=== PATIENT | female | born 1950 | race Hispanic/Latino ===

== ENCOUNTER 2022-03-21 19:51 | Emergency (ER) | payer OTHER, MEDICARE ==
[~2022-03-21] VITALS: Ht 154.9 cm; Wt 57.2 kg
[2022-03-21 20:14] LABS: BASOPHILS % (AUTO) 0.3 % (0.0-5.0); EOSINOPHILS % (AUTO) 1.1 % (0.0-8.0); HEMATOCRIT 46.3 % (36-48); LYMPHOCYTES % (AUTO) 37.1 % (21.0-51.0); MEAN CORPUSCULAR HEMOGLOBIN 31.3 pg (27.0-33.0); MEAN CORPUSCULAR HGB CONC 33.9 g/dL (32.0-36.0); MEAN CORPUSCULAR VOLUME 92.2 fL (79-99); MONOCYTES % (AUTO) 7.3 % (3.0-13.0); NEUTROPHILS % (AUTO) 53.9 % (40.0-77.0); PLATELET COUNT (AUTO) 209 K/uL (130-400); RED BLOOD CELL COUNT(AUTO) 5.02 MIL/uL (4.00-5.50); RED CELL DISTRIBUTION WIDTH 12.4 % (11.0-15.5); WHITE BLOOD COUNT (AUTO) 15.4 K/uL (4.8-10.8)
[2022-03-21] MEDS ORDERED: METF-444 PO (20:19)
[2022-03-21] MEDS ORDERED: ROSU20TA31 PO (20:20)
[2022-03-21] MEDS ORDERED: EMPA10TA PO (20:22)
[2022-03-21] MEDS ORDERED: LISI20TA24 PO (20:22)
[2022-03-21 20:43] LABS: ALBUMIN 3.8 g/dL (3.5-5.0); BILIRUBIN,TOTAL 0.2 mg/dL (0.2-1.0); CREATININE 0.8 mg/dL (0.5-1.5); POTASSIUM 3.9 mmol/L (3.5-5.1); TOTAL PROTEIN, SERUM 8.7 g/dL (6.0-8.3)
[2022-03-21] MEDS ORDERED: BUPIVACAINE/PF 0.5% 10ML VIAL IJ PRN (21:00)
[2022-03-21] MEDS ORDERED: ORPHENADRINE CITRATE 30 MG/ML ML IVP ONE (21:00)
[2022-03-21] MEDS ORDERED: TRIAMCINOLONE ACETONIDE 40 MG/ML 1ML VIAL SQ PRN (21:00)
[2022-03-21] MEDS ORDERED: KETOROLAC 15MG/ML VIAL (15MG/ML) IV ONE (21:00)
[2022-03-21] MEDS ORDERED: BUPIVACAINE/PF 0.5% 30ML VIAL ONE (21:45)
[2022-03-21] MEDS ORDERED: SOLU-MEDROL 40MG VIAL IJ ONE (23:30)
[2022-03-21 23:52] LABS: APPEARANCE,URINE Turbid (CLEAR); BILIRUBIN,URINE Negative (NEGATIVE); COLOR,URINE Dark Yellow (YELLOW); GLUCOSE, URINE (UA) >=1000 mg/dL (NEGATIVE); KETONES,URINE Negative (NEGATIVE); LEUKOCYTE ESTERASE ,URINE Small (NEGATIVE); NITRATE,URINE Positive (NEGATIVE); OCCULT BLOOD,URINE Nonhemolyzed Trace (NEGATIVE); PROTEIN,URINE POS 1+ mg/dL (NEGATIVE); UROBILINOGEN,URINE 0.2 mg/dL (0.2-1.0)
[2022-03-22 00:03] LABS: BACTERIA,URINE Many /HPF (None Seen); RBC,URINE None Seen /HPF (0-1)
[2022-03-22 00:04] LABS: SQUAMOUS EPITHELIAL CELL,UR Moderate /HPF (0-2); YEAST,URINE BUDDING Few /HPF (None Seen)
[2022-03-22] MEDS ORDERED: CEFTRIAXONE 1G VIAL IVP ONE (00:30)
[2022-03-22] MEDS ORDERED: CYCL10TA16 PO (00:44)
[2022-03-22] MEDS ORDERED: IBUP-2070 PO (00:44)
[2022-03-22] MEDS ORDERED: CEPH500B PO (00:44)
[2022-03-22 01:10] VITALS: BP 141/74
== END 2022-03-22 01:10 | disposition home or self-care (01) ==
LOC: EDH 19:51
DX: M54.2 Cervicalgia (principal); N39.0 Urinary tract infection, site not specified; E11.9 Type 2 diabetes mellitus without complications; E78.00 Pure hypercholesterolemia, unspecified; I10 Essential (primary) hypertension; F17.200 Nicotine dependence, unspecified, uncomplicated; Z88.0 Allergy status to penicillin; Z88.5 Allergy status to narcotic agent; Z79.899 Other long term (current) drug therapy; Z79.84 Long term (current) use of oral hypoglycemic drugs; Z90.49 Acquired absence of other specified parts of digestive tract
CPT/HCPCS: 20552; 36415; 62270; 70450; 71045; 80053; 81001; 85025; 87077; 87088; 87186; 96374; 96375; 99285; J0696; J1885; J2360; J2920; J3490

== ENCOUNTER 2022-12-21 15:35 | Emergency (ER) | payer OTHER, MEDICARE ==
[~2022-12-21] VITALS: Ht 154.9 cm; Wt 57.6 kg
[~2022-12-21 15:35] MED LIST: CEPH500B PO; CYCL10TA16 PO; EMPA10TA PO; IBUP-2070 PO; LISI20TA24 PO; METF-444 PO; ROSU20TA31 PO
[2022-12-21 16:29] VITALS: BP 128/77
== END 2022-12-21 19:32 | disposition left against medical advice (07) ==
LOC: EDH 15:35
DX: M54.2 Cervicalgia (principal); Z53.21 Procedure and treatment not carried out due to patient leaving prior to being seen by health care provider
CPT/HCPCS: 99281